=== PATIENT | female | born 1990 | race Hispanic/Latino ===

== ENCOUNTER 2017-01-07 22:19 | Emergency (ER) | payer SELFPAY ==
--- NOTE | 2017-01-07 22:49 | RAD ---
PA AND LATERAL VIEWS OF THE CHEST 01/07/17 HISTORY: Left sided chest pain. FINDINGS: Comparison made to exam of 12/04/15. The heart size is normal. The lungs are well expanded without focal areas of consolidation, pneumoth orax or pleural effusions. No acute osseous abnormalities are seen. IMPRESSION: No radiographic evidence of acute cardiopulmonary process. POS: [facility]
[2017-01-08] MEDS ORDERED: Ibuprofen 200 MG TAB ONE (00:24)
== END 2017-01-08 00:25 | disposition home or self-care (01) ==
LOC: ERS 22:19
DX: R07.89 Other chest pain (principal); H61.22 Impacted cerumen, left ear; F41.9 Anxiety disorder, unspecified
CPT/HCPCS: 71020; 93005

== ENCOUNTER 2020-08-06 08:06 | Emergency (ER) | payer SELFPAY ==
[2020-08-06 16:43] LABS: SARS-CoV-2 PCR by NAA Not Detected (NotDetected)
== END 2020-08-06 10:22 | disposition home or self-care (01) ==
LOC: ERS 08:06
DX: R05 Cough (principal); R09.81 Nasal congestion; Z20.822 Contact with and (suspected) exposure to COVID-19
CPT/HCPCS: 87635; 99283; U0003; U0005

== ENCOUNTER 2021-03-03 11:58 | Emergency (ER) | payer SELFPAY ==
[2021-03-03 12:43] LABS: #Basophils 0.1 thou/uL (0.0-0.2); #Eosinphils 0.1 thou/uL (0.0-0.7); #Monocytes 0.4 thou/uL (0.11-0.59); #Neutrophils 4.7 thou/uL (1.40-6.50); %Basophils 0.7 % (0.0-1.0); %Eosinophils 1.6 % (0.0-10.0); %Lymphocytes 27.4 % (21.0-51.0); %Neutrophils 64.3 % (42.0-75.0); Hemoglobin 13.9 g/dL (12.0-16.0); Mean Corpuscular HGB CONC 33.6 g/dL (32.0-36.0); Mean Corpuscular Hemoglobin 33.1 pg (27.0-31.0); Mean Corpuscular Volume 98.5 fL (78.0-98.0); Mean Platelet Volume 8.6 fL (7.4-10.4); Platelet Count 276 thou/uL (130-400); RBC Distribution Width 11.5 % (11.5-14.5); Red Blood Cell (RBC) Count 4.19 mill/uL (4.20-5.40); White Blood Cell (WBC) Count 7.3 thou/uL (4.8-10.8)
[2021-03-03 12:46] LABS: BHCG - Serum Negative (NEGATIVE); Pregs Control Background? CLEAR/WHITE (CLR/WHITE); Pregs Control Bar Appear? YES (CONTROL BAR)
[2021-03-03 13:10] LABS: ALT (SGPT) 12 U/L (8-55); AST (SGOT) 11 U/L (5-34); Albumin 4.1 g/dL (3.5-5.0); Alkaline Phosphatase 67 U/L (40-110); Anion Gap 12 mmol/L (10-20); BUN (Urea Nitrogen) 11 mg/dL (7.0-18.7); Bilirubin, Total 0.4 mg/dL (0.2-1.2); Calc. Creatinine Clearance 0 mL/min (70-130); Calcium 9.1 mg/dL (7.8-10.44); Carbon Dioxide 24 mmol/L (22-29); Chloride 106 mmol/L (98-107); Globulin 3.2 g/dL (2.4-3.5); Glucose 104 mg/dL (70-105); Potassium 4.1 mmol/L (3.5-5.1); Protein, Total 7.3 g/dL (6.0-8.3); Sodium 138 mmol/L (136-145)
== END 2021-03-03 13:15 | disposition home or self-care (01) ==
LOC: ERS 11:58
DX: N92.0 Excessive and frequent menstruation with regular cycle (principal)
CPT/HCPCS: 36415; 80053; 84703; 85025; 99284

== ENCOUNTER 2021-04-22 08:07 | Emergency (ER) | payer SELFPAY ==
[2021-04-22 15:34] LABS: SARS-CoV-2 PCR by NAA DETECTED (NotDetected)
== END 2021-04-22 09:07 | disposition home or self-care (01) ==
LOC: ERS 08:07
DX: U07.1 COVID-19 (principal); H66.011 Acute suppurative otitis media with spontaneous rupture of ear drum, right ear; H61.22 Impacted cerumen, left ear
CPT/HCPCS: 99283; U0003; U0005

== ENCOUNTER 2023-08-20 19:22 | Emergency (ER) | payer OTHER, SELFPAY ==
[2023-08-20] MEDS ORDERED: Lidocaine 1% w/Epinephrine 1:100K 20 ML VIAL ONE (19:37)
[2023-08-20] MEDS ORDERED: Boostrix 0.5 ML (Tdap) VIAL (>/=7 yrs of age) ONE (19:58)
[2023-08-20] MEDS ORDERED: Bacitracin 1 PK ONE (20:20)
[2023-08-20] MEDS ORDERED: Sulfameth/Trimethoprim DS 800-160mg TAB ONE (20:28)
== END 2023-08-20 20:31 | disposition home or self-care (01) ==
LOC: ERS 19:22
DX: S70.352A Superficial foreign body, left thigh, initial encounter (principal); X58.XXXA Exposure to other specified factors, initial encounter
CPT/HCPCS: 10120; 90471; 90715

== ENCOUNTER 2024-01-18 06:57 | Emergency (ER) | payer SELFPAY ==
[2024-01-18] MEDS ORDERED: predniSONE 20 MG TAB ONE (07:29)
[2024-01-18] MEDS ORDERED: Ondansetron ODT 4 MG TAB ONE (07:29)
[2024-01-18] MEDS ORDERED: Ibuprofen 200 MG TAB ONE (07:29)
[2024-01-18] MEDS ORDERED: Pseudoephedrine HCl 30 MG TAB PO SCH (07:45)
== END 2024-01-18 08:17 | disposition home or self-care (01) ==
LOC: ERS 06:57
DX: B34.9 Viral infection, unspecified (principal)
CPT/HCPCS: 87081; 87430; 99284; J7512; Q0162